=== PATIENT | female | born 1995 | race Caucasian/White ===

== ENCOUNTER 2018-09-24 18:30 | Emergency (ER) | payer BC, OTHER ==
--- NOTE | 2018-09-24 19:04 | ED.PDOC ---
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 Ramos stated had OB-[facility] at 9 1/2 weeks ega, intrauterine and blood works.Had uncomplicated deliveries on her previous .Denies also dysuria. Timing/Duration: week - one week Quality: intermittent, sharpness Onset Location: other - lower abdomen Radiation: none Activites at Onset: none Prior abdominal problems: none Sexual intercourse history: single partner Improving Factors: nothing Worsening Factors: nothing Associated Symptoms: denies symptoms Allergies/Adverse Reactions: Allergies NO KNOWN ALLERGY Allergy (Verified 09/24/18 18:45) Home Medications: Ambulatory Orders Acetaminophen W/ Codeine [Tylenol w/Codeine 300-30 mg] 1 tab PO Q6H PRN #30 tab 08/17/14 Vit W/ Ferrous Fumara [] 1 tab PO DAILY #30 08/17/14 Review of Systems - Review of Systems Constitutional: States: no symptoms reported EENTM: States: no symptoms reported Respiratory: States: no symptoms reported Cardiology: States: no symptoms reported Gastrointestinal/Abdominal: States: see HPI Genitourinary: States: no symptoms reported Musculoskeletal: States: no symptoms reported Skin: States: no symptoms reported Past Medical History (General) - Patient Medical History Hx Asthma: No Hx Diabetes: No Hx Renal Disease: Yes - frequent UTI's as a child Surgical History: no surgical history - Vaccination History Hx Influenza Vaccination: No Immunizations Up to Date: Yes - Social History Hx Tobacco Use: No Hx Alcohol Use: No Hx Substance Use: No Hx Substance Use Treatment: No Hx Depression: No - Female History Patient is a Female of Child Bearing Age (10 -59 yrs old): Yes Hx Last Menstrual Period: 06/27/18 Patient : Yes Expected Date of Delivery:: 04/03/19 Family Medical History - Family History Mother Name: Aubree Age (years): 39 Living Status: Still Living Hx Cardiac Disease: Yes - electral heart problems Age of Onset (years of age): 35 Hx Family;Other: electrical heart problems Maternal Grandparents Hx Family Stroke: Yes Hx Cardiac Disease: Yes - heart attack Hx Family Diabetes: Yes Hx Family;Other: maternal grandmother w/cardiac disease and diabetes Maternal Name: Yong( great grandfather) Living Status: Hx Cardiac Disease: Yes Physical Exam - Physical Exam General Appearance: Alert, Comfortable, No apparent distress Eyes, Ears, Nose, Throat Exam: normal ENT inspection Neck: non-tender, full range of motion, supple Cardiovascular/Respiratory: regular rate, rhythm, no M/R/G, normal peripheral pulses, normal breath sounds Gastrointestinal/Abdominal: non tender, soft, no organomegaly, other - gravid uterus;no FHT at this time Pelvic Exam: external exam normal, speculum exam normal, no cerv. motion tender, no masses, discharge, other - no blood cervical os,thick drainage cerical os,cervix closed Back Exam: normal inspection, no CVA tenderness, no vertebral tenderness Extremity: no pedal edema, no calf tenderness Neurologic: alert Skin Exam: normal color, warm/dry Progress - Progress Progress: 09/24/18 19:15 Vital Signs 09/24/18 18:37 Temperature 99.5 F Pulse Rate [ 102 H pulse ox] Respiratory 20 Rate Blood Pressure 114/86 [Left Arm] O2 Sat by Pulse 99 Oximetry - Results/Orders Results/Orders: 09/24/18 20:32 URINE CULTURE W/COLONY COUNT Stat 09/24/18 21:06 GC CULTURE Stat GENITAL CULTURE Stat WET PREP Routine Laboratory Results - last 24 hr 09/24/18 09/24/18 09/24/18 19:15 19:16 19:37 WBC 7.9 RBC 3.77 L Hgb 11.7 L Hct 32.8 L MCV 87.0 MCH 31.0 MCHC 35.7 RDW 15.3 H Plt Count 260 MPV 7.6 Absolute Neuts (auto) 5.50 Absolute Lymphs (auto) 1.70 Absolute Monos (auto) 0.70 Absolute Eos (auto) 0.00 Absolute Basos (auto) 0.00 Neutrophils % 69.5 Lymphocytes % 20.9 Monocytes % 8.5 Eosinophils % 0.6 L Basophils % 0.5 Sodium 136 Potassium 3.5 L Chloride 105 Carbon Dioxide 24 Anion Gap 10.5 L BUN 11 Creatinine 0.46 L BUN/Creatinine Ratio 23.9 H Random Glucose 91 Serum Osmolality 270.9 L Calcium 8.9 Beta HCG, Quant 12240.0 H Urine Color Yellow Urine Appearance Clear Urine pH 6.5 Ur Specific [place] 1.010 Urine Protein Negative Urine Glucose (UA) Negative Urine Ketones Negative Urine Blood Negative Urine Nitrite Negative Urine Bilirubin Negative Urine Urobilinogen 0.2 Ur Leukocyte Esterase Trace H Urine RBC 1-3 Urine WBC 5-10 H Ur Epithelial Cells 10-20 Urine Bacteria Rare Departure - Departure Clinical Impression: 12 weeks gestation of Abdominal pain Qualifiers: Abdominal location: lower abdomen, unspecified Qualified Code(s): R10.30 - Lower abdominal pain, unspecified Time of Disposition: 22:08 Disposition: Discharge to Home or Self Care Condition: Fair Departure Forms: ED Discharge - Pt. Copy, Patient Portal Self Enrollment Instructions: How to Adapt to Physical Changes During , - The Fourth Month, Stomach Pain in Early Referrals: HARMAN RAMOS [Primary Care Provider] - 1-2 Weeks Home Medications: Ambulatory Orders Acetaminophen W/ Codeine [Tylenol w/Codeine 300-30 mg] 1 tab PO Q6H PRN #30 tab 08/17/14 Vit W/ Ferrous Fumara [] 1 tab PO DAILY #30 08/17/14 Additional Instructions: Follow up with your OB 25 Sep 2018 for re-check;Continue with your vitamins;Return to ER as needed;No sex until better
[2018-09-24] MEDS ORDERED: LACTATED RINGERS 1,000 ML IVS ONE (19:16)
[2018-09-24 21:41] VITALS: O2SAT 98
[2018-09-24 22:18] VITALS: BP 117/72; TEMP 98.6
== END 2018-09-24 22:18 | disposition home or self-care (01) ==
LOC: ER 18:30
DX: O99.89 Other specified diseases and conditions complicating pregnancy, childbirth and the puerperium (principal); R10.30 Lower abdominal pain, unspecified; Z3A.12 12 weeks gestation of pregnancy